=== PATIENT | male | born 1970 | race Caucasian/White ===

== ENCOUNTER 2019-12-09 16:45 | Emergency (ER) | payer OTHER ==
[2019-12-09 16:58] VITALS: BP 141/88
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
== END 2019-12-09 17:15 | disposition left against medical advice (07) ==
LOC: ER 16:45
DX: F10.10 Alcohol abuse, uncomplicated (principal); R41.3 Other amnesia
CPT/HCPCS: 99281